=== PATIENT | female | born 2000 | race Caucasian/White ===

== ENCOUNTER 2022-04-20 11:19 | Outpatient (REF) | payer BC, SELFPAY ==
--- NOTE | ~2022-04-20 | US_ITS ---
EXAMINATION: US THYROID CLINICAL INFORMATION: Abnormal thyroid function tests. COMPARISON: None TECHNIQUE: Linear transducer grayscale and color Doppler examination with attention to the region of the thyroid. FINDINGS: SIZE: Measurements of the thyroid lobes and nodules are given in sagittal, anteroposterior and transverse dimensions respectively. Right Thyroid Lobe: 4.94 x 1.55 x 1.52 cm, volume 6.11 mL. Parenchyma: The gland echotexture is heterogeneous. Thyroid vascularity is increased. Left Thyroid Lobe: 4.60 x 1.24 x 1.95 cm, volume 5.83 mL. Parenchyma: The gland echotexture is heterogeneous. Thyroid vascularity is increased. Isthmus: 0.32 cm in maximum AP dimension. No focal thyroid nodule is seen. NODES: No lymphadenopathy is seen in the tissue surrounding the thyroid gland. US/US thyroid IMPRESSION: Heterogeneous and hypervascular thyroid gland which could be seen with thyroiditis or autoimmune thyroid disorders. Recommend correlation with laboratory findings and antibodies. No discrete nodules greater than 1 cm in size, though evaluation is limited due to heterogeneity of the background. Continue to follow-up imaging according to clinical guidelines is recommended.
== END 2022-04-20 11:20 | disposition home or self-care (01) ==
LOC: HO.HMGCX 11:19
PROVIDERS: PCP Nurse Practitioner Family; Visit Provider Nurse Practitioner Family
DX: R94.6 Abnormal results of thyroid function studies (principal)
CPT/HCPCS: 76536